=== PATIENT | male | born 1990 | race African-American/Black ===

== ENCOUNTER 2024-09-28 21:24 | Emergency (ER) | payer SELFPAY ==
[~2024-09-28] VITALS: Ht 180.3 cm; Wt 83.0 kg
[2024-09-28 21:43] VITALS: O2SAT 99
[2024-09-28] MEDS ORDERED: CYCL10TA21 MT (23:30)
[2024-09-28] MEDS ORDERED: NAPR-1176 MT (23:30)
[2024-09-28] MEDS: IBUPROFEN 600MG TABLET PO ONE (23:54)
[2024-09-28] MEDS: CYCLOBENZAPRINE 10MG TABLET PO ONE (23:54)
[2024-09-29 00:31] VITALS: BP 135/76; PULSE 69; RESP 18; TEMP 36.7; O2SAT 99
== END 2024-09-29 00:33 | disposition home or self-care (01) ==
LOC: ER 21:24
DX: S80.02XA Contusion of left knee, initial encounter (principal); W19.XXXA Unspecified fall, initial encounter; Y93.89 Activity, other specified; Y92.89 Other specified places as the place of occurrence of the external cause; Y99.8 Other external cause status
CPT/HCPCS: 29505; 73560; 99283